=== PATIENT | female | born 1945 | race Caucasian/White ===

== ENCOUNTER 2016-04-19 05:51 | Inpatient (IN) | payer MEDICARE, OTHER ==
[2016-04-19] VITALS (15 sets, daily range): BP systolic 93–156; BP diastolic 62–101; PULSE 52–93; RESP 8–22; O2SAT 93–100
[~2016-04-19] VITALS: Ht 167.6 cm; Wt 114.5 kg
[~2016-04-19 05:51] MED LIST: ACET-171 PO; ALBU18HF INH; CARB200T PO; ESOM20CA39 PO; FLUO40CA PO; IPRA30SP8 NS; Lactated Ringer's 1,000 ML IV ONE; MULT-1073 PO; SIMV20TA4 PO; VITA150T PO; VITA400C64 PO
[2016-04-19] MEDS ORDERED: CeFAZolin Inj 2 GM in IV Premix 1 EACH IV ONE (06:00)
[2016-04-19] MEDS ORDERED: Lactated Ringer's 1,000 ML IV ONE ×2 (06:57→11:59)
--- NOTE | 2016-04-19 08:56 | PCM.HPANE ---
Patient Data Surgeon Admitting Provider: Attending Provider:Melissa Horne MD Primary Care Physician:Marybeth Rodgers PA-C Other Provider:Shilpa Reeves Anesthesia Reason for Visit Left Renal Mass LEFT RENAL MASS Ht/WT & BMI Height (Feet): 5 Height (Inches): 6.00 Weight (Kilograms): 113.761 Body Mass Index 40.00 Allergies Coded Allergies: No Known Allergies (Unverified , 04/15/16) Past Anesthesia History Anesthesia History: Denies:: Anesthesia Reactions, Malignant Hyperthermia Diabetes History Hx Diabetes?: No MRSA MRSA: No Medications Home Meds Incl Beta Sohail: No Reported Medications Carbamazepine (Tegretol)200 Mg [id number] Mg PO BID 04/15/16 Acetaminophen 500 Mg Tablet1,000 Mg PO Q6H PRN For Pain 04/15/16 Vitamin E Mixed (Vitamin E)400 Unit [id number] Unit PO DAILY 30 Days 04/15/16 Albuterol Sulfate (Ventolin HFA Inhaler)200 Puff/18 Gm Inhaler1 Puff INH Q4 PRN For Wheezing #1 INHALER Ref 0 04/15/16 Vitamin B Complex & Vit C No.4 (Super B Complex)150 Mg [id number] Mg PO DAILY 04/15/16 Simvastatin 20 Mg Ukbiyr13 Mg PO HS Ref 0 04/15/16 Fluoxetine 40 Mg Vmxdafl55 Mg PO DAILY Ref 0 04/15/16 Esomeprazole Magnesium 20 Mg Capsule.dr20 Mg PO DAILY 04/15/16 Multivits-Min/FA/Lycopene/Lut (Centrum Silver Tablet)1 Each Tablet1 Each PO DAILY 04/15/16 Discontinued Reported Medications Ipratropium Holmen (Ipratropium [place] 0.03% Nasal)30 Ml Spray2 [place] NS TID PRN PRN #1 BOTTLE Ref 0 04/15/16 History History of ENT Problems?: Yes HEENT History: Positive for:: Sinus Problem (ALLERGIC RHINITIS) Other HEENT Pertinent History: S/P TONSILLECTOMY Hx of Heart Problems?: Yes Cardiovascular History: Positive for:: Chest Pain Denies:: Heart Murmur (ECHO 02/2016 EF 60-65%) Hypertension (HYPERLIPIDEMIA) Irregular Heartbeat (OPERATIONS PLANT ATTENDANT DOUBTS LONG QT SYNDROME) Valvular Heart Disease Hx of Respiratory Problem?: Yes Respiratory History: Positive for:: Asthma Dyspnea (MICHAUD) Use of Inhalers / NEBS Denies:: Chest Surgery (CHEST CT DONE FOR MICHAUD & RENAL MASS FOUND INCIDENTALLY) Pneumonia (BRONCHITIS) Use of C-PAP Machine (SNORES) Hx Neurologic Problems?: Yes Neurological History: Positive for:: Dizziness Other Neurological Pertinent: HX TRIGEMINAL NEURALGIA Hx of GI Problems?: Yes Gastrointestinal History: Positive for:: Gastroesphageal Reflux Hiatal Hernia Other GI Pertinent History: S/P RPR INCISIONAL HERNIA @ TIME OF ABD HYST ??RECURRENCE OF INCISIONAL HERNIA?? Hx of Problems?: Yes Other Pertinent History: LT RENAL MASS=CURRENT PROBLEM Female Hx: Denies:: Currently Skin History: Positive for:: History Skin Disorders? 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 Category 1B: Patient has history of documented sleep apnea, and HAS received any narcotic , sedative or anesthesia administration during this stay Category 2: Patient has SUSPECTED Obstructive Sleep Apnea, and HAS received any narcotic , sedative or anesthesia administration during this stay. Category 3: Patient has SUSPECTED Obstructive Sleep Apnea and HAS NOT received narcotic, sedative or anesthesia administration during this stay. Category 4: Outpatient in Procedural Areas with known sleep apnea or who screen positive for High Risk via the STOP/BANG questionnaire. Exam Exam Vital Signs Vital Signs Date Time Temp Pulse Resp B/P Pulse Ox O2 Delivery O2 Flow Rate FiO2 04/19/16 06:40 36.4 62 20 133/68 96 Room Air General Appearance: Alert, Oriented X3, Cooperative, No Acute Distress HEENT/AIRWAY: MP 3 Lungs: Diminished Heart: Exam Unremarkable Meds/Labs/Diagnostics Admission Meds Current Medications Lactated Ringer's (Lr) 1,000 ml @ ud STK-MED ONCE IV Last administered on t 06:57; Start 04/19/16 at 06:57; Stop 04/19/16 at 06:58; Status DC Plan Impression Patient chart reviewed, patient interviewed and anesthestic plan with risks, benefits, and alternatives discussed, and informed consent obtained. NPO Status: 04/18@2200, APPLE JUICE ASA Physical Status: ASA3 Severe Disease (morbid obesity) Anesthetic Support Modalities: Arterial Line Anesthetic Plan: GA, SAB Bene/Risks/Altern/Consents: Yes HP Complete Prior to Induction: Yes Josh Lizarraga MD Apr 19, 2016 08:56
[2016-04-19] MEDS ORDERED: Lactated Ringer's 500 ML IV PRN (10:24)
[2016-04-19] MEDS ORDERED: MetoCLOpramide 5 mg/mL 2 mL Inj IVPUSH PRN (10:25)
[2016-04-19] MEDS ORDERED: Phenylephrine 10,000 mCg/mL Inj IVPUSH PRN (10:25)
[2016-04-19] MEDS ORDERED: Dexamethasone 4 mg/mL Inj IVPUSH PRN (10:25)
[2016-04-19] MEDS ORDERED: EPHEDrine Sulfate 50 mg/mL Inj IVPUSH PRN (10:25)
[2016-04-19] MEDS ORDERED: Ondansetron 2 mg/mL 2 mL Inj IVPUSH PRN (10:25)
[2016-04-19] MEDS: Lactated Ringer's 1,000 ML IV SCH ×4 (10:30→21:14)
--- NOTE | 2016-04-19 12:19 | PCM.ANEP1 ---
Post Anesthesia Phase 1 PACU Phase 1 Assessment Vital Signs Vital Signs Date Time Temp Pulse Resp B/P Pulse Ox O2 Delivery O2 Flow Rate FiO2 04/19/16 06:40 36.4 62 20 133/68 96 Room Air Anesthetic Administered: GA Level of Alertness: Awake, talking MITCHELL's with Equal Strength: Yes Pain: Yes Nausea or Vomiting: No Oxygen Delivery: Simple Mask Lungs: Clear to Auscultation, Diminished Josh Lizarraga MD Apr 19, 2016 12:19
[2016-04-19] MEDS: fentaNYL-PF 50 mCg/mL 2 mL Inj IVPUSH PRN ×2 (12:33→12:37)
[2016-04-19] MEDS: HYDROmorphone 1 mg/mL Inj IVPUSH PRN ×2 (12:33→12:37)
--- NOTE | 2016-04-19 13:16 | PCM.ANEP2 ---
Post Anesthesia Evaluation ASA/CMS Post Anesthesia VS in Patient's Normal Range?: Yes Resp Stable; Airway Patent?: Yes CV Function & Hydration Stable: Yes Mental Status Recovered?: Yes Pain control Satisfactory?: Yes N/V Control Satisfactory?: Yes Josh Lizarraga MD Apr 19, 2016 13:16
[2016-04-19] MEDS ORDERED: Phenylephrine/NS-PF 100 mCg/mL 5 mL Syringe IVPUSH ONE (13:27)
[2016-04-19] MEDS ORDERED: Dexamethasone 4 mg/mL Inj ONE (13:27)
[2016-04-19] MEDS ORDERED: Bupiv-Spinal 0.75%/Dex 8.25% 2 mL Inj ONE (13:27)
[2016-04-19] MEDS ORDERED: Propofol 10,000 mCg/mL 20 mL Inj ONE (13:27)
[2016-04-19] MEDS ORDERED: Neostigmine 1 mg/mL 5 mL Inj ONE (13:27)
[2016-04-19] MEDS ORDERED: Rocuronium 10 mg/mL 5 mL Inj ONE (13:27)
[2016-04-19] MEDS ORDERED: Ondansetron 2 mg/mL 2 mL Inj ONE (13:27)
[2016-04-19] MEDS ORDERED: Glycopyrrolate 0.2 mg/mL 5 mL Inj ONE (13:27)
[2016-04-19] MEDS ORDERED: Morphine PF 1 mg/mL 10 mL Inj ONE (13:31)
[2016-04-19] MEDS ORDERED: fentaNYL-PF 50 mCg/mL 2 mL Inj ONE (13:31)
[2016-04-19] MEDS ORDERED: HYDROmorphone 1 mg/mL Inj IVPUSH PRN (14:20)
--- NOTE | 2016-04-19 15:14 | NUR ---
Post Op Pt arrived to OSC unit, room 1025, at 1430 - arrived via bed. A&Ox3 - sleepy; MITCHELL - gen weakness and denying numbness/tingling at this time, wiggling toes; VSS - remains HTN which pt seems to have been ranging, on 3L NC; 3x lap sites with 1x hand assist incision site - dermabond, no dressing over top: minimal drainage noted - dried, offered new gown to pt - sleepy and stated "later", 2x IV patent - left hand IV SL and LR at 150ml/hr to left wrist infusing; SCDs on and running; Lua patent; Pt c/o pain to ribs - stated not new, present on admission; states minimal pain to abd s/o lap with hand assist radial nephrectomy - tolerable. Friend at bedside. Pt oriented to room. Call light in reach. Care continues.
[2016-04-19] MEDS ORDERED: Albuterol 2.5 mg/3 mL Inhalation Solution NEB PRN (16:00)
[2016-04-19] MEDS: oxyCODONE-Acetamin 5-325 mg Tablet PO PRN (21:14)
--- NOTE | 2016-04-19 23:31 | OP ---
[address] [address] OPERATIVE REPORT PATIENT: KALEY CASILLAS : 1945 MR#: [id number] ADMIT: 04/19/2016 JOB ID: [id number] CORRECTED REPORT DATE OF SURGERY: 04/19/2016 PREOPERATIVE DIAGNOSIS(ES): Left renal mass. POSTOPERATIVE DIAGNOSIS(ES): Left renal mass. PROCEDURE PERFORMED: Left laparoscopic radical nephrectomy. SURGEON: Melissa Horne MD FISHER DIVING: Gertrude Ray PA-C (her expert technical assistance was required to aid in the dissection) FINDINGS: Left renal mass. ANESTHESIA: 1. General. 2. Duramorph spinal. ESTIMATED BLOOD LOSS: 50 mL. DRAINS: Lua catheter to the bladder. SPECIMENS: Left kidney and mass. COMPLICATIONS: None. CONDITION: Stable. INDICATIONS: The patient is a 70-year-old woman with a mostly endophytic left upper pole renal mass. After reviewing her options and attendant risks and benefits, she elected to undergo left laparoscopic versus open radical nephrectomy. DESCRIPTION OF PROCEDURE: After informed consent was obtained, the patient was taken to the operating room. A time-out was performed identifying correct patient, surgical site, and procedure. She was given anesthesia via Duramorph spinal as well as general endotracheal tube, which was smoothly induced. She was positioned over a gel pad and beanbag in the right lateral decubitus position after Lua catheter was placed into the bladder using sterile technique. All pressure points were identified and appropriately padded. Her abdomen and flank were then prepped and draped in usual sterile fashion. Given the patient's history of incisional hernia and repair, it was planned to place a 5 mm trocar two fingerbreadths inferior to the subcostal margin in the mid clavicular line. An 11 blade was used to puncture the skin. Veress needle was placed in the intraperitoneal location as verified by the saline drop test. Pneumoperitoneum was established. The incision was developed to accommodate a 5 mm trocar in the same place as the Veress needle. It was inserted and a 5 mm camera was used to verify intraperitoneal location and no inadvertent damage to the surrounding viscera. Under direct vision, two 10/12 trocars were placed in the left lower quadrant as well as superior and just left lateral of the umbilicus. The white line of Toldt was incised down to her pelvis. The lienocolic ligaments were incised. The Thunderbeat was used for this dissection. The colon was reflected medially. The mesenteric fat was then divided and reflected medially as well. Dissection proceeded to the posterior body wall to the psoas. There was seen the ureter coursing over it. It was followed up to the renal hilum where there was seen a main renal vein that branched. There was a renal artery just posterior and inferior to it. This was cleared off with a right angle dissector. An Endo-JENN was used to ligate the renal hilum. The superior aspect of the hilum was then treated again with the Endo-JENN kyle. The kidney was then dissected free from inferior to the spleen. The attachments were then all taken down superiorly and posteriorly as well as laterally. The ureter and adventitia surrounding it was taken with an Endo-JENN as well. A 15 mm EndoCatch bag was then placed in the left lower quadrant through the existing trocar site. It was bagged without difficulty. The 10/12 trocar site just superior to the umbilicus was closed with a Kobe Diego at the fascia level with an 0-Vicryl loaded through it. The fossa was inspected and irrigated multiple times. FloSeal was placed at the hilum and the superior margin of the renal fossa. Surgicel was used over an area near the spleen. There was excellent hemostasis at the end of the procedure. The left lower quadrant incision was then developed with a 15 blade to approximately 2.5 to 3 inches. The specimen was removed through the bag. The trocars were then subsequently removed. The fascial layers of the left lower quadrant incision were closed with an 0 looped PDS. The incisions were irrigated copiously with saline. 3-0 Vicryl was used to close the subcutaneous fat of the left lower quadrant wound. The skin was then closed with 4-0 Monocryl in running subcuticular fashion. The wounds were then dressed with Dermabond. The patient was then reversed from general anesthesia and taken to PACU in good and stable condition. All sponge, instrument, and needle counts were correct at the end of the procedure. Corrected by BD 06/10/16 9:08 am chanel HOLDEN
[2016-04-20] MEDS: carBAMazepine 200 mg Tablet PO SCH ×3 (00:04→20:37)
[2016-04-20] MEDS: oxyCODONE-Acetamin 5-325 mg Tablet PO PRN ×4 (03:56→20:36)
[2016-04-20] MEDS: Lactated Ringer's 1,000 ML IV SCH ×4 (03:56→21:51)
[2016-04-20 05:34] VITALS: BP 152/87; PULSE 71; RESP 16; O2SAT 95
--- NOTE | 2016-04-20 05:43 | NUR ---
Bedrest Incisions CDI, dermabond intact. Pt accepts prn for pain with good results. No complaints of chest pain or respiratory distress, pt remains on CPOX and 1L nc. IV infusing LR at 150. Lua draining yellow urine. Pt tolerates clear liquids and ice, dry cough intermittently this shift. Care continues
[2016-04-20] MEDS: Pantoprazole 20 mg ER24 Tablet PO SCH (06:32)
[2016-04-20] MEDS: D5 0.45% NaCl + KCl 20 mEq/L 1,000 ML IV SCH ×3 (09:28→23:09)
--- NOTE | 2016-04-20 11:37 | PCM.PNSURG ---
Subjective Date of Service: Apr 20, 2016 Date of Service: Apr 20, 2016 Visit Information: Reason for Visit Left Renal Mass Surgery/Surgery Date L LAP RAD NEPHRECTOMY 04/19/16 Post-Op Day # 1 Date of Admission: Apr 19, 2016 at 13:30 Hospital Day # 2 Subjective: Ms Abbott reports doing well overall--she was up to commode, and then requested Percocet. She is tolerating clear liquids w/o n/v. Postop General: No Complaints Gastrointestinal: No N/V Pain Management: PO, IV Push Postop Activity: Ambulate with Assist Objective Vital Sign- Last 8 Hours Date Time Temp Pulse Resp B/P Pulse Ox O2 Delivery O2 Flow Rate FiO2 04/20/16 05:34 37.3 71 16 152/87 95 Nasal Cannula 3.00 Intake and Output- Last 8 Hour 04/20/16 Cumulative From/Thru 07:00 04/15/16 10:41 - 04/20/16 05:34 Intake Total 300 ml 4408 ml Output Total 700 ml 900 ml Balance -400 ml 3508 ml Intake Oral 300 ml 620 ml IV Total 3788 ml Output Urine Total 700 ml 850 ml Estimated Blood Loss 50 ml # Bowel Movements 0 0 General: Alert Abdomen: Benign, Appropriately tender (wounds c/d/i w moderate ecchymosis present) Extremities: Warm Neuro: Cranial Nerves 2-12 nl Catheters: Urethral 2 Way Lua Result Diagram: 04/20/16 0605 04/20/16 0605 Assessment & Plan Impression POD#1 LEFT laparoscopic radical nephrectomy Problems: Plan We discussed her pain regimen - Controlled with Percocet and IV dilaudid We talked about her diet - ADAT We discussed intraop findings - Uneventful We talked about activity - She must be OOB and ambulating TID with assist - She is eager to get OOB We talked about IS and rationale for We reviewed her bathing recs - She can shower today - No baths/submersions We talked about activity restrictions on d/c home Dispo: - D/C planning tomorrow - BMP tomorrow AM Melissa Horne MD Apr 20, 2016 11:37
--- NOTE | 2016-04-20 11:43 | PCM.DISURG ---
Surgical Discharge Instruction Date of Service Apr 20, 2016 Dates of Hospitalization Date of Hospital Admission Apr 19, 2016 at 13:30 Providers Admitting Physician: Melissa Horne MD Primary Care Physician: Marybeth Rodgers PA-C Attending Physician: Melissa Horne MD Discharge Diagnosis Discharge Diagnosis LEFT renal mass Post Operative diagnosis Same Diet Discharge Diet: Other (healthy diet) Activity Discharge Activity-General: Be up and about, No lifting >10 pounds for 4-6 weeks, No driving while taking narcotic Dressing and Incisional Care Hygiene: May shower after, DO NOT soak incision under water Follow Up Plan Follow Up Plan 05/04/16 at 9:30 AM, check-in at 9:[address] Horne's office Call your provider for: Fever, Chills, Shortness of breath, Vomiting, Increasing wound pain, Discharge @ incision, pus discharge Melissa Horne MD Apr 20, 2016 11:42
[2016-04-20 14:11] VITALS: BP 156/79; PULSE 69; RESP 17; O2SAT 93
--- NOTE | 2016-04-20 14:20 | NUR ---
Lua catheter / activity Lua catheter removed at 0915 hrs. Pt voiding without problems. Pt to ambulate in hallway TID. She ambulated approx 100 feet with her spouse. Stated she felt a little dizzy when returning to the bedside. Pt will ambulate again this afternoon and a third time this evening. Care continues.
[2016-04-20 18:00] VITALS: PULSE 75; O2SAT 98
[2016-04-20 20:57] VITALS: BP 145/84; PULSE 80; RESP 20; O2SAT 97
--- NOTE | 2016-04-20 22:04 | NUR ---
Shortness of Breath Pt. ambulated with complaints of shortness of breath and dyspnea. Pt. was given oxygen via nasal canula at 2L. Oxygen stats returned to 97 after oxygen administration. Pt. is in bed with call light and non skid foot wear. Light is on in room and the pt. was instructed to use call light. Pt. is awake and oriented
--- NOTE | 2016-04-21 03:40 | NUR ---
Pain Patient c/o left shoulder at beginning of shift. Percocet 5/325 one tab PO given with effective results. No further c/o pain or discomfort. Call light within reach. Will continue Q1hour rounding.
[2016-04-21] MEDS: Lactated Ringer's 1,000 ML IV SCH ×2 (04:31→11:10)
[2016-04-21] MEDS: D5 0.45% NaCl + KCl 20 mEq/L 1,000 ML IV SCH ×2 (04:40→11:11)
[2016-04-21 04:51] VITALS: BP 144/84; PULSE 70; RESP 20; O2SAT 97
[2016-04-21] MEDS: oxyCODONE-Acetamin 5-325 mg Tablet PO PRN ×2 (06:32→11:25)
[2016-04-21] MEDS: Pantoprazole 20 mg ER24 Tablet PO SCH (06:33)
[2016-04-21] MEDS: carBAMazepine 200 mg Tablet PO SCH (09:23)
--- NOTE | 2016-04-21 10:50 | PATH ---
SURGICAL PATHOLOGY Attending Physician:Melissa Horne, CASE STATUS: Signed Out PATIENT NAME: KALEY CASILLAS PID: [id number] : 1945 DATE COLLECTED:04/19/2016 00:00 SPECIMEN: Kidney, Radical Nephrectomy for Tumor CLINICAL HISTORY: LEFT RENAL MASS 1). LEFT KIDNEY FINAL DIAGNOSIS: LEFT RADICAL NEPHRECTOMY SPECIMEN: RENAL CELL CARCINOMA WITH THE FOLLOWING FEATURES: 1.TUMOR SITE: UPPER POLE. 2.TUMOR SIZE: 3.5 X 3.3 X 2.8 CM. 3.HISTOLOGIC TYPE: CLEAR CELL (CONVENTIONAL) RENAL CELL CARCINOMA. 4.HISTOLOGIC GRADE (FURHMAN): NUCLEAR GRADE 1 WITH FOCAL AREAS OF NUCLEAR GRADE 2. 5.TUMOR NECROSIS: NOT IDENTIFIED. 6.TUMOR FOCALITY: SINGLE FOCUS. 7.EXTENT OF TUMOR: TUMOR CONFINED TO THE KIDNEY WITH NO EVIDENCE OF CAPSULAR INVASION. 8.SURGICAL MARGINS: WIDELY FREE OF TUMOR. 9.LYMPH/VASCULAR INVASION: NOT IDENTIFIED. 10.RENAL PELVIS INVOLVEMENT: NEGATIVE. 11.ADRENAL GLAND: ABSENT. 12.NON-NEOPLASTIC KIDNEY: MINIMAL ARTERIAL AND ARTERIOLONEPHROSCLEROSIS WITH MINIMAL GLOMERULAR SCARRING. 13.PATHOLOGIC STAGE (TNM): pT1a, pNX. ICD10 code C64.2 GROSS DESCRIPTION: The specimen is received in formalin, labeled with the patient's name, sublabeled as left kidney and consists of a kidney (11.0 x 5.3 x 3.9 cm) with attached ureter (length-8.2 cm, diameter-0.2 cm), renal artery (length-0.2 cm, diameter-0.1 cm), renal vein (length-0.3 cm, diameter-0.5 cm) and perirenal adipose (up to 9.5 cm in depth). The upper pole contains a solid firm yellow-orange well circumscribed mass (3.5 x 3.3 x 2.8 cm) with a central hemorrhagic cavity (1.5 x 1.3 x 0.8 cm). The mass is 5.4 cm from the nearest pharynx, 0.8 cm from the arterial, and 0.9 cm from the venous resection margins. The mass involves predominantly the cortex and pushes outward on the capsule beyond the normal renal contour but does not extend through. The mass does not involve the ureter, renal artery, vein, pelvis, or sinus. The capsule is rosario-oshea smooth shiny and flat. The parenchyma is red-brown with normal architecture. No other nodules, masses or lesions are identified. Section code: (A) ureter, renal vein, renal artery, resection margins; (B, C-D, E-H) mass, field sales representative; (I, J) normal kidney, field sales representative. 04/20/16 JM MICRO DESCRIPTION: See diagnosis. ICD-9 CODES: CPT CODES: 37888 Electronically Signed Out Rob Ortega MD [facility] Pathology [facility] [address], [place] [address] Technical component performed at [facility], [facility] [address], [place], [address]
--- NOTE | 2016-04-21 12:10 | PCM.PNSURG ---
Subjective Date of Service: Apr 21, 2016 Date of Service: Apr 21, 2016 Visit Information: Reason for Visit Left Renal Mass Surgery/Surgery Date L LAP RAD NEPHRECTOMY 04/19/16 Post-Op Day # 2 Date of Admission: Apr 19, 2016 at 13:30 Hospital Day # 2 Subjective: Pt sitting in chair during time of exam, increased ambulation as instructed, is tolerating PO diet, does report diff catching her breath after ambulation. Pain is well controlled, just took Percocet Postop General: No Chest Pain Gastrointestinal: Tolerating Oral Feedings, No N/V Pain Management: PO, IV Push Postop Activity: Ambulate with Assist Objective Vital Sign- Last 8 Hours Date Time Temp Pulse Resp B/P Pulse Ox O2 Delivery O2 Flow Rate FiO2 04/21/16 04:51 36.8 70 20 144/84 97 Nasal Cannula 2.00 Intake and Output- Last 8 Hour 04/21/16 Cumulative From/Thru 07:00 04/15/16 10:41 - 04/21/16 06:21 Intake Total 1944 ml 86718 ml Output Total 2400 ml 4150 ml Balance -456 ml 6569 ml Intake Oral 300 ml 1960 ml IV Total 1644 ml 8759 ml Output Urine Total 2400 ml 4100 ml Estimated Blood Loss 50 ml # Voids 1 # Bowel Movements 0 0 General: Alert, Oriented X3 Neck: Supple Abdomen: Benign, Appropriately tender, Non-distended Extremities: Distal Pulses Palpable Neuro: Cranial Nerves 2-12 nl Catheters: Urethral 2 Way Lua Result Diagram: 04/20/16 0605 04/21/16 0655 Assessment & Plan Impression POD#2 LEFT laparoscopic radical nephrectomy Problems: Plan Pain Management - Controlled with Percocet and IV dilaudid, pt will be discharged with oral pain medications Diet - Continue ADAT Activity - Encouraged she must be OOB and ambulating TID with assist - She is eager to get OOB, reports she has increased ambulation today Hygiene - She can shower today - No baths/submersions We talked about activity restrictions on d/c home, reviewed Dr. Horne's postoperative instructions Dispo: - D/C today Gertrude Ray PA-C Apr 21, 2016 12:10
[2016-04-21 12:48] VITALS: BP 141/81; PULSE 73; RESP 20; O2SAT 96
--- NOTE | 2016-04-21 13:51 | NUR ---
Discharge Pt was d/c from room 1025 at 1345 home via private vehicle with . All discharge teaching and instruction was done with at bedside. IV d/c'd intact. Hard copy of RX with pt. Titrated pt off O2 this morning. Encouraged coughing and deep breathing and use of the IS. Pt sating mid 90's but when falling asleep tends to sat low 90's when pt is reminded and encouraged to get oob and into the chair O2 sats improve. PA aware. Pt to f/u with with PCP to evaluate possible sleep apnea. All pt questions answered.
--- NOTE | 2016-04-21 16:20 | NUR ---
Social Work Initial Assessment: SW met with patient and Jesus at bedside to discuss discharge plan. Patient is a 70 year old female admitted on 04/19/16 for left renal mass. Patient payer as Medicare. secondary. Patient PCP as MD Rodgers. Patient resides in [place] with who provide support and care. Patient pharmacy of choice as [facility]. Patient has no previous HHC history. Patient has a walker and cane at home. Patient has no previous SNF history. Patient states having no AD and SW provided patient with information for completion. Patient states being independent with needs and states having no identified discharge needs at this time. SW to follow. PLAN: Home with via POV, pending clinical course. SW to follow. Glo EDWARDS Addendum: 04/21/16 at 1624 by KAIDEN SIERRA Amended: Links added.
--- NOTE | 2016-05-06 15:01 | PCM.DC.SUR ---
Discharge Summary Date of Service: May 06, 2016 Date of Hospital Admission: Apr 19, 2016 at 13:30 Date of Operation(s): 04/19/16 Date of Discharge: 04/21/16 Diagnosis at Time of Discharge Renal cell cancer Problems: Operation LEFT lap radical nephrectomy Brief History and Physical: Patient with LEFT renal mass, she underwent LEFT radical nephrectomy. Hospital Course: 04/19/16: LEFT lap radical nephrectomy. She had an uneventful recovery. By the time of discharge, she was tolerating regular diet, ambulating, and her pain was well controlled. Pathology: Renal cell carcinoma, clear cell. Disposition: Home Follow-up Plan: 2 wks Acetaminophen (Acetaminophen) 500 Mg Tablet 1,000 MG PO Q6H PRN PRN For Pain ( Reported) Albuterol Sulfate (Ventolin HFA Inhaler) 200 Puff/18 Gm Inhaler 1 PUFF INH Q4 PRN PRN For Wheezing (Reported) Carbamazepine (Tegretol) 200 Mg Tablet 200 MG PO BID (Reported) Esomeprazole Magnesium (Esomeprazole Magnesium) 20 Mg Capsule.dr 20 MG PO DAILY (Reported) Fluoxetine (Fluoxetine) 40 Mg Capsule 40 MG PO DAILY (Reported) Multivits-Min/FA/Lycopene/Lut (Centrum Silver Tablet) 1 Each Tablet 1 EACH PO DAILY (Reported) Simvastatin (Simvastatin) 20 Mg Tablet 20 MG PO HS (Reported) Vitamin B Complex & Vit C No.4 (Super B Complex) 150 Mg Tablet 150 MG PO DAILY ( Reported) Vitamin E Mixed (Vitamin E) 400 Unit Capsule 400 UNIT PO DAILY (Reported) Melissa Horne MD May 06, 2016 15:01
== END 2016-04-21 13:28 | disposition home or self-care (01) | DRG 657 ==
LOC: SAS 05:51 → OSC 13:30
PROVIDERS: ADMIT Urology; ATTEND Urology
PROC: 0TT14ZZ Resection of Left Kidney, Percutaneous Endoscopic Approach (ICD-10-PCS; principal; 2016-04-19 08:30)
DX: C64.2 Malignant neoplasm of left kidney, except renal pelvis (principal); Z68.41 Body mass index [BMI] 40.0-44.9, adult; E66.01 Morbid (severe) obesity due to excess calories; E78.5 Hyperlipidemia, unspecified